=== PATIENT | female | born 1950 | race Caucasian/White ===

== ENCOUNTER 2017-08-28 11:48 | Emergency (ER) | payer OTHER, MEDICAID ==
[~2017-08-28] VITALS: Ht 157.5 cm; Wt 69.0 kg
[2017-08-28] MEDS ORDERED: MORPHINE SULFATE 10 MG/ML CPJ IM ONE (12:00)
[2017-08-28] MEDS ORDERED: TETANUS, DIPHTHERIA, PERTUSSIS VAC/PF 0.5ML (>7YR OLD) IM ONE (12:00)
[2017-08-28 12:14] LABS: BASOPHILS % 0.4 % (0.0-2.0); EOSINOPHILS % 1.8 % (0.0-5.0); HEMATOCRIT. 43.3 % (36.0-48.0); HEMOGLOBIN. 14.8 g/dL (12.0-16.0); LYMPHOCYTES % 47.4 % (20.0-50.0); MEAN CORPUSCULAR HEMOGLOBIN 30.6 pg (28.0-32.0); MEAN CORPUSCULAR VOLUME 89.5 fL (81.0-99.0); MEAN PLATELET VOLUME 9.7 fl (7.4-10.4); MONOCYTES % 6.4 % (2.0-8.0); PLATELET 326 x1000/uL (130-400); RED BLOOD CELL COUNT 4.84 mill/uL (4.2-5.4); RED CELL DISTRIBUTION WIDTH 13.6 % (11.6-14.6)
[2017-08-28] MEDS ORDERED: CEFAZOLIN 1000MG PREMIX 50 ML IV ONE ×2 (12:15)
[2017-08-28 12:20] LABS: PROTHROMBIN TIME 10.5 sec (9.4-11.6)
[2017-08-28 12:23] LABS: CHLORIDE 106 mEq/L (98-107)
[2017-08-28] MEDS ORDERED: ONDANSETRON HCL 4MG/2ML VIAL IV ONE (13:00)
[2017-08-28] MEDS ORDERED: PROPOFOL 200MG/20ML VIAL IV PRN (13:00)
[2017-08-28] MEDS ORDERED: KETAMINE HCL 50 MG/ML 10ML IV ONE (13:00)
[2017-08-28 15:37] VITALS: BP 140/67
== END 2017-08-28 15:56 | disposition short-term general hospital (02) ==
LOC: ER 11:48
DX: S52.692B Other fracture of lower end of left ulna, initial encounter for open fracture type I or II (principal); W19.XXXA Unspecified fall, initial encounter; Y93.89 Activity, other specified; Y92.89 Other specified places as the place of occurrence of the external cause; Y99.8 Other external cause status; I10 Essential (primary) hypertension; E78.00 Pure hypercholesterolemia, unspecified
CPT/HCPCS: 25605; 36415; 73090; 80053; 85025; 85610; 90471; 90715; 93005; 96365; 96372; 96375; 99152; 99285; J0690; J2270; J2405; J3490; J2704

== ENCOUNTER 2018-08-30 12:05 | Inpatient (IN) | payer OTHER, MEDICAID ==
[~2018-08-30] VITALS: Ht 167.6 cm; Wt 70.8 kg
[2018-08-30] MEDS ORDERED: PANTOPRAZOLE SODIUM 40 MG/VIAL IV STA (13:29)
[2018-08-30] MEDS ORDERED: SODIUM CHLORIDE 0.9% 1,000 ML IV ONE (13:29)
[2018-08-30] MEDS ORDERED: ONDANSETRON HCL 4MG/2ML INJ IV STA (13:29)
[2018-08-30 14:26] LABS: BASOPHILS % 0.2 % (0.0-2.0); EOSINOPHILS % 0.3 % (0.0-5.0); HEMOGLOBIN. 13.5 g/dL (12.0-16.0); LYMPHOCYTES % 15.2 % (20.0-50.0); MEAN CORPUSCULAR HEMOGLOBIN 29.6 pg (28.0-32.0); MEAN CORPUSCULAR VOLUME 87.6 fL (81.0-99.0); MEAN PLATELET VOLUME 9.4 fl (7.4-10.4); MONOCYTES % 3.7 % (2.0-8.0); NEUTROPHILS % 80.6 % (40.0-76.0); PLATELET 277 x1000/uL (130-400); RED BLOOD CELL COUNT 4.57 mill/uL (4.2-5.4); RED CELL DISTRIBUTION WIDTH 14.9 % (11.6-14.6)
[2018-08-30 14:31] LABS: CHLORIDE 110 mEq/L (98-107)
[2018-08-30 14:32] LABS: PARTIAL THROMBOPLASTIN TIME 25.6 sec (23.4-31.0); PROTHROMBIN TIME 10.5 sec (9.1-11.1)
[2018-08-30] MEDS ORDERED: NA PHOS,M-B/NA PHOS,DI-BA ENEMA 118ML PR PRN (18:15)
[2018-08-30] MEDS ORDERED: GUAIFENESIN 200MG/10ML SUGAR FREE UDC PO PRN (18:15)
[2018-08-30] MEDS ORDERED: LORAZEPAM 0.5MG TABLET PO PRN (18:15)
[2018-08-30] MEDS ORDERED: HYDROCODONE/ACETAMINOPHEN 5/325MG TABLET PO PRN (18:15)
[2018-08-30] MEDS ORDERED: IPRATROPIUM/ALBUTEROL 0.5-3(2.5)MG/3ML NEB INH PRN (18:15)
[2018-08-30] MEDS ORDERED: DOCUSATE SODIUM 100MG CAPSULE PO PRN (18:15)
[2018-08-30] MEDS ORDERED: MAGNESIUM/ALUMINUM HYDROXIDE/SIMETHICONE 30ML UDC PO PRN (18:15)
[2018-08-30] MEDS ORDERED: CLONIDINE 0.1MG TABLET PO PRN (18:15)
[2018-08-30] MEDS ORDERED: ACETAMINOPHEN 650MG SUPP PR PRN (18:15)
[2018-08-31 05:50] LABS: BASOPHILS % 0.5 % (0.0-2.0); EOSINOPHILS % 2.1 % (0.0-5.0); HEMATOCRIT. 32.4 % (36.0-48.0); HEMOGLOBIN. 11.2 g/dL (12.0-16.0); LYMPHOCYTES % 36.3 % (20.0-50.0); MEAN CORPUSCULAR HEMOGLOBIN 30.4 pg (28.0-32.0); MEAN CORPUSCULAR VOLUME 88.2 fL (81.0-99.0); MEAN PLATELET VOLUME 9.6 fl (7.4-10.4); MONOCYTES % 4.9 % (2.0-8.0); NEUTROPHILS % 56.2 % (40.0-76.0); PLATELET 248 x1000/uL (130-400); RED BLOOD CELL COUNT 3.68 mill/uL (4.2-5.4)
[2018-08-31 05:57] LABS: CHLORIDE 115 mEq/L (98-107)
[2018-08-31 06:08] LABS: LDL CHOLESTEROL 57 mg/dL (5-100)
[2018-08-31 06:09] LABS: HDL CHOLESTEROL 34 mg/dL (40-59); T4 FREE 1.04 ng/dL (0.76-1.46)
[2018-08-31 08:00] VITALS: BP 118/61
[2018-08-31] MEDS: DEXT 5%/0.45% NACL 1000ML 1,000 ML IV SCH ×2 (08:00→15:51)
[2018-08-31 09:00] VITALS: BP 132/52
[2018-08-31] MEDS: PANTOPRAZOLE SODIUM 40 MG/VIAL IV SCH (09:00)
[2018-08-31] MEDS ORDERED: LEVOFLOXACIN 500MG PREMIX 100 ML IV SCH (10:00)
[2018-08-31 12:00] VITALS: BP 132/52
[2018-08-31 16:00] VITALS: BP 143/55
[2018-08-31] MEDS: DIPHENHYDRAMINE 50MG/ML VIAL IV PRN (16:49)
[2018-08-31 20:00] VITALS: BP 121/84
[2018-08-31] MEDS: VANCOMYCIN 1500MG in DEXTROSE 5% WATER 250ML IV SCH ×2 (20:00→22:56)
[2018-09-01] VITALS (14 sets, daily range): BP systolic 111–140; BP diastolic 45–84
[2018-09-01] MEDS: VANCOMYCIN 1500MG in DEXTROSE 5% WATER 250ML IV SCH (07:07)
[2018-09-01 07:16] LABS: CLARITY URINE CLOUDY (CLEAR); COLOR URINE YELLOW (YELLOW); KETONES URINE TRACE (NEGATIVE); LEUKOCYTE ESTERASE URINE 2+ (NEGATIVE); NITRITE URINE NEGATIVE (NEGATIVE); OCCULT BLOOD URINE 1+ (NEGATIVE); PROTEIN URINE NEGATIVE (NEGATIVE); SPECIFIC GRAVITY URINE 1.022 (1.005-1.030); UROBILINOGEN URINE 0.2 E.U./dL (0.2-1.0)
[2018-09-01 07:39] LABS: *AMPHETAMINES SCREEN URINE NEGATIVE (NEGATIVE); *BARBITURATES SCREEN URINE NEGATIVE (NEGATIVE); *BENZODIAZEPINES SCREEN URINE NEGATIVE (NEGATIVE); *COCAINE SCREEN URINE NEGATIVE (NEGATIVE); METHADONE URINE SCREEN NEGATIVE (NEGATIVE); OPIATES URINE SCREEN NEGATIVE (NEGATIVE)
[2018-09-01 07:40] LABS: CANNABINOID URINE SCREEN NEGATIVE (NEGATIVE); PHENCYCLIDINE URINE SCREEN NEGATIVE (NEGATIVE)
[2018-09-01] MEDS: PANTOPRAZOLE SODIUM 40 MG/VIAL IV SCH (08:50)
[2018-09-01] MEDS ORDERED: LEVOFLOXACIN 500MG TABLET PO SCH ×2 (11:00)
[2018-09-01] MEDS: DEXT 5%/0.45% NACL 1000ML 1,000 ML IV SCH ×2 (11:35→20:59)
[2018-09-01 11:58] LABS: HEMATOCRIT 31.7 % (36.0-48.0); HEMOGLOBIN 11.1 g/dL (12.0-16.0); MEAN CORPUSCULAR VOLUME 88.9 fL (81.0-99.0); PLATELET 253 x1000/uL (130-400); RED BLOOD CELL COUNT 3.56 mill/uL (4.2-5.4)
[2018-09-01 12:01] LABS: CHLORIDE 112 mEq/L (98-107)
[2018-09-01] MEDS ORDERED: BISACODYL 5MG TABLET PO NR ×2 (15:00→19:00)
[2018-09-01] MEDS ORDERED: METOCLOPRAMIDE 10MG/10 ML UDC PO NR ×2 (15:00→19:00)
[2018-09-01] MEDS ORDERED: SORBITOL 70% SOLN 30ML PO NR ×2 (16:00→20:00)
[2018-09-01] MEDS: ONDANSETRON HCL 4MG/2ML INJ IV PRN (17:37)
[2018-09-01] MEDS ORDERED: CEPHALEXIN 250MG CAPSULE PO SCH (18:00)
[2018-09-01 20:16] LABS: HEMATOCRIT 31.9 % (36.0-48.0); HEMOGLOBIN 10.8 g/dL (12.0-16.0)
[2018-09-01] MEDS ORDERED: POTASSIUM CHLORIDE 20MEQ/PACKET PO NR (20:30)
[2018-09-02] VITALS (63 sets, daily range): BP systolic 86–155; BP diastolic 46–103
[2018-09-02] MEDS: CEPHALEXIN 250MG CAPSULE PO SCH ×3 (00:54→11:47)
[2018-09-02 01:00] LABS: HEMATOCRIT 28.8 % (36.0-48.0)
[2018-09-02] MEDS ORDERED: SORBITOL 70% SOLN 30ML PO NR (04:00)
[2018-09-02] MEDS ORDERED: METOCLOPRAMIDE 10MG/10 ML UDC PO NR (04:00)
[2018-09-02 05:51] LABS: BASOPHILS % 0.3 % (0.0-2.0); EOSINOPHILS % 2.3 % (0.0-5.0); HEMATOCRIT. 26.8 % (36.0-48.0); HEMOGLOBIN. 9.3 g/dL (12.0-16.0); LYMPHOCYTES % 36.9 % (20.0-50.0); MEAN CORPUSCULAR HEMOGLOBIN 30.9 pg (28.0-32.0); MEAN PLATELET VOLUME 9.5 fl (7.4-10.4); MONOCYTES % 6.2 % (2.0-8.0); NEUTROPHILS % 54.3 % (40.0-76.0); PLATELET 232 x1000/uL (130-400); RED BLOOD CELL COUNT 3.01 mill/uL (4.2-5.4)
[2018-09-02 06:02] LABS: CHLORIDE 116 mEq/L (98-107)
[2018-09-02] MEDS: DEXT 5%/0.45% NACL 1000ML 1,000 ML IV SCH ×3 (06:40→23:44)
[2018-09-02] MEDS: PANTOPRAZOLE SODIUM 40 MG/VIAL IV SCH ×2 (09:12→20:27)
[2018-09-02] MEDS ORDERED: POTASSIUM CHLORIDE 20MEQ/PACKET PO NR (16:00)
[2018-09-02] MEDS ORDERED: METOCLOPRAMIDE HCL 10MG/2ML VIAL IV NR (16:00)
[2018-09-02] MEDS: PIPERACILLIN/TAZ 3.375G PREMIX 50 ML IV SCH ×2 (16:20→23:44)
[2018-09-02 16:34] LABS: HEMATOCRIT 28.3 % (36.0-48.0); HEMOGLOBIN 9.8 g/dL (12.0-16.0)
[2018-09-02] MEDS ORDERED: DIPHENHYDRAMINE 50MG/ML VIAL ONE (17:32)
[2018-09-02] MEDS ORDERED: MIDAZOLAM HCL 5 MG/5 ML VIAL ONE (17:32)
[2018-09-02] MEDS ORDERED: FENTANYL CITRATE/PF 50MCG/ML 2ML VIAL ONE (17:32)
[2018-09-02] MEDS ORDERED: SIMETHICONE 40 MG/0.6 ML 30ML ONE (17:32)
[2018-09-02] MEDS ORDERED: MIDAZOLAM HCL 5 MG/5 ML VIAL IV PRN (17:40)
[2018-09-02] MEDS ORDERED: FENTANYL CITRATE/PF 50MCG/ML 2ML VIAL IV PRN (17:41)
[2018-09-02] MEDS: ONDANSETRON HCL 4MG/2ML INJ IV PRN (19:23)
[2018-09-02] MEDS: DIPHENHYDRAMINE 50MG/ML VIAL IV PRN (19:24)
[2018-09-02 23:50] LABS: HEMATOCRIT 27.2 % (36.0-48.0); HEMOGLOBIN 9.3 g/dL (12.0-16.0)
[2018-09-03] VITALS (76 sets, daily range): BP systolic 64–161; BP diastolic 35–76
[2018-09-03] MEDS: DEXT 5%/0.45% NACL 1000ML 1,000 ML IV SCH ×3 (05:37→20:30)
[2018-09-03] MEDS: PIPERACILLIN/TAZ 3.375G PREMIX 50 ML IV SCH ×4 (05:37→23:37)
[2018-09-03 07:46] LABS: CHLORIDE 113 mEq/L (98-107)
[2018-09-03 07:49] LABS: BASOPHILS % 0.2 % (0.0-2.0); EOSINOPHILS % 1.4 % (0.0-5.0); HEMOGLOBIN. 8.6 g/dL (12.0-16.0); LYMPHOCYTES % 25.1 % (20.0-50.0); MEAN CORPUSCULAR HEMOGLOBIN 30.7 pg (28.0-32.0); MEAN CORPUSCULAR VOLUME 88.7 fL (81.0-99.0); MONOCYTES % 4.2 % (2.0-8.0); NEUTROPHILS % 69.1 % (40.0-76.0); PLATELET 227 x1000/uL (130-400); RED BLOOD CELL COUNT 2.82 mill/uL (4.2-5.4); RED CELL DISTRIBUTION WIDTH 15.1 % (11.6-14.6)
[2018-09-03] MEDS: PANTOPRAZOLE SODIUM 40 MG/VIAL IV SCH ×2 (09:51→22:14)
[2018-09-03] MEDS ORDERED: POTASSIUM CHLORIDE INJ 40 MEQ in DEXT 5% WATER 250 ML IV NR (12:00)
[2018-09-03] MEDS ORDERED: LORAZEPAM 0.5MG TABLET PO PRN (18:15)
[2018-09-03 19:32] LABS: HEMOGLOBIN 9.7 g/dL (12.0-16.0)
[2018-09-03] MEDS ORDERED: IOHEXOL-300 100 ML BOTTLE ONE (21:42)
[2018-09-04] VITALS (28 sets, daily range): BP systolic 90–156; BP diastolic 41–96
[2018-09-04 05:31] LABS: HEMATOCRIT 26.4 % (36.0-48.0); HEMOGLOBIN 9.1 g/dL (12.0-16.0); MEAN CORPUSCULAR HEMOGLOBIN 30.7 pg (28.0-32.0); MEAN CORPUSCULAR VOLUME 88.6 fL (81.0-99.0); PLATELET 257 x1000/uL (130-400); RED BLOOD CELL COUNT 2.98 mill/uL (4.2-5.4); RED CELL DISTRIBUTION WIDTH 15.2 % (11.6-14.6)
[2018-09-04 05:37] LABS: CHLORIDE 109 mEq/L (98-107)
[2018-09-04] MEDS: PIPERACILLIN/TAZ 3.375G PREMIX 50 ML IV SCH ×3 (05:58→18:13)
[2018-09-04] MEDS: DEXT 5%/0.45% NACL 1000ML 1,000 ML IV SCH ×3 (05:59→20:19)
[2018-09-04] MEDS: PANTOPRAZOLE SODIUM 40 MG/VIAL IV SCH ×2 (09:19→21:30)
[2018-09-04] MEDS ORDERED: POTASSIUM CHLORIDE INJ 40 MEQ in DEXT 5% WATER 250 ML IV NR (09:30)
[2018-09-04] MEDS ORDERED: LORAZEPAM 0.5MG TABLET PO PRN (14:15)
[2018-09-05] VITALS (42 sets, daily range): BP systolic 93–146; BP diastolic 37–75
[2018-09-05] MEDS: PIPERACILLIN/TAZ 3.375G PREMIX 50 ML IV SCH ×4 (00:41→18:40)
[2018-09-05 05:27] LABS: CHLORIDE 108 mEq/L (98-107)
[2018-09-05 05:28] LABS: HEMOGLOBIN 9.2 g/dL (12.0-16.0); MEAN CORPUSCULAR HEMOGLOBIN 31.5 pg (28.0-32.0); MEAN CORPUSCULAR VOLUME 88.9 fL (81.0-99.0); PLATELET 276 x1000/uL (130-400); RED BLOOD CELL COUNT 2.93 mill/uL (4.2-5.4); RED CELL DISTRIBUTION WIDTH 15.1 % (11.6-14.6)
[2018-09-05] MEDS: DEXT 5%/0.45% NACL 1000ML 1,000 ML IV SCH (06:39)
[2018-09-05] MEDS: PANTOPRAZOLE SODIUM 40 MG/VIAL IV SCH ×2 (09:00→21:38)
[2018-09-05] MEDS ORDERED: BUPIVACAINE HCL 0.5% (5MG/ML) 50ML ONE ×2 (10:12→11:50)
[2018-09-05] MEDS ORDERED: FENTANYL CITRATE/PF 50MCG/ML 5ML VIAL ONE (11:16)
[2018-09-05] MEDS ORDERED: PROPOFOL 200MG/20ML VIAL IV ONE (11:16)
[2018-09-05] MEDS ORDERED: ROCURONIUM BROMIDE 10MG/ML VIAL 5ML IV ONE (11:16)
[2018-09-05] MEDS ORDERED: MIDAZOLAM HCL 2 MG/2 ML VIAL ONE (11:16)
[2018-09-05] MEDS ORDERED: GLYCOPYRROLATE 0.2 MG/ML 2ML VIAL ONE (11:17)
[2018-09-05] MEDS ORDERED: METRONIDAZOLE 500 MG PREMIX 100 ML IV ONE (11:39)
[2018-09-05] MEDS ORDERED: BUPIVACAINE HCL 0.5% 175 ML in ON-Q PM013 DRUG DELIV DEVICE 1 EA IR SCH (12:00)
[2018-09-05] MEDS ORDERED: SUCCINYLCHOLINE CHLORIDE 200MG/10ML IV ONE (12:03)
[2018-09-05] MEDS ORDERED: NIFEDIPINE 10MG CAPSULE ONE (12:03)
[2018-09-05] MEDS ORDERED: ONDANSETRON HCL 4MG/2ML INJ ONE (12:03)
[2018-09-05] MEDS ORDERED: METOCLOPRAMIDE HCL 10MG/2ML VIAL ONE (12:03)
[2018-09-05] MEDS ORDERED: MEPERIDINE HCL/PF 25MG/ML CPJ IV PRN (12:15)
[2018-09-05] MEDS ORDERED: HYDROMORPHONE HCL/PF 2MG/ML CPJ IV PRN (12:15)
[2018-09-05] MEDS ORDERED: ONDANSETRON HCL 4MG/2ML INJ IV PRN ×2 (12:15→12:30)
[2018-09-05] MEDS ORDERED: FENTANYL CITRATE/PF 50MCG/ML 2ML VIAL IV PRN (12:15)
[2018-09-05] MEDS ORDERED: KETOROLAC 30MG/ML VIAL ONE (12:19)
[2018-09-05] MEDS ORDERED: NEOSTIGMINE METHYLSULFATE 1MG/ML 10 ML VIAL ONE (12:20)
[2018-09-05] MEDS ORDERED: SKIN ADHESIVE 0.7 GM EA TOP ONE (12:22)
[2018-09-05] MEDS: ENOXAPARIN 40MG/0.4ML SYR SUBCUT SCH (12:45)
[2018-09-05] MEDS: CEFAZOLIN 1000MG PREMIX 50 ML IV SCH ×2 (15:04→21:39)
[2018-09-05] MEDS: BUPIVACAINE HCL 0.5% 175 ML in ON-Q PUMP (PM013=P270X2) IR SCH (15:07)
[2018-09-05] MEDS: DEXT 5%/0.45% NACL KCL 20MEQ/L 1,000 ML IV SCH (15:07)
[2018-09-05] MEDS: MORPHINE SULFATE 4 MG/ML CPJ (NOT FOR IM USE) IV PRN ×2 (15:13→18:39)
[2018-09-05] MEDS: METRONIDAZOLE 500 MG PREMIX 100 ML IV SCH ×2 (15:21→22:53)
[2018-09-06] VITALS (35 sets, daily range): BP systolic 73–171; BP diastolic 23–78
[2018-09-06] MEDS: PIPERACILLIN/TAZ 3.375G PREMIX 50 ML IV SCH ×4 (01:01→21:28)
[2018-09-06] MEDS: DEXT 5%/0.45% NACL KCL 20MEQ/L 1,000 ML IV SCH ×3 (01:02→19:30)
[2018-09-06] MEDS: DIPHENHYDRAMINE 50MG/ML VIAL IV PRN (02:44)
[2018-09-06] MEDS: CEFAZOLIN 1000MG PREMIX 50 ML IV SCH (05:51)
[2018-09-06] MEDS: METRONIDAZOLE 500 MG PREMIX 100 ML IV SCH (05:51)
[2018-09-06] MEDS ORDERED: POTASSIUM CHLORIDE INJ 40 MEQ in DEXT 5% WATER 250 ML IV ONE (08:00)
[2018-09-06 09:02] LABS: HEMOGLOBIN. 7.7 g/dL (12.0-16.0); MEAN CORPUSCULAR HEMOGLOBIN 30.7 pg (28.0-32.0); MEAN CORPUSCULAR VOLUME 88.2 fL (81.0-99.0); PLATELET 271 x1000/uL (130-400); RED BLOOD CELL COUNT 2.49 mill/uL (4.2-5.4); RED CELL DISTRIBUTION WIDTH 15.3 % (11.6-14.6)
[2018-09-06 09:11] LABS: CHLORIDE 108 mEq/L (98-107)
[2018-09-06 09:17] LABS: PHOSPHORUS 1.8 mg/dL (2.5-4.9)
[2018-09-06] MEDS: PANTOPRAZOLE SODIUM 40 MG/VIAL IV SCH (10:14)
[2018-09-06] MEDS: MORPHINE SULFATE 4 MG/ML CPJ (NOT FOR IM USE) IV PRN ×2 (10:14→18:14)
[2018-09-06 11:18] LABS: PLATELET ESTIMATE NORMAL
[2018-09-06] MEDS: ENOXAPARIN 40MG/0.4ML SYR SUBCUT SCH (12:00)
[2018-09-06] MEDS: POTASSIUM-SODIUM PHOSPHATE POWDER PACKET PO SCH ×3 (13:00→18:09)
[2018-09-06] MEDS: BUPIVACAINE HCL 0.5% 175 ML in ON-Q PUMP (PM013=P270X2) IR SCH (14:05)
[2018-09-06] MEDS ORDERED: POTASSIUM PHOS,M-BASIC-D-BASIC 30 MMOL in DEXT 5% WATER 500 ML IV SCH (21:30)
[2018-09-07] VITALS: BP 113/54
[2018-09-07 04:00] VITALS: BP 137/71
[2018-09-07] MEDS: PIPERACILLIN/TAZ 3.375G PREMIX 50 ML IV SCH ×4 (06:15→22:49)
[2018-09-07 07:16] LABS: BASOPHILS % 0.2 % (0.0-2.0); EOSINOPHILS % 2.1 % (0.0-5.0); HEMATOCRIT. 25.7 % (36.0-48.0); HEMOGLOBIN. 8.8 g/dL (12.0-16.0); LYMPHOCYTES % 9.8 % (20.0-50.0); MEAN CORPUSCULAR HEMOGLOBIN 29.9 pg (28.0-32.0); MEAN CORPUSCULAR VOLUME 87.5 fL (81.0-99.0); MEAN PLATELET VOLUME 8.6 fl (7.4-10.4); MONOCYTES % 4.7 % (2.0-8.0); NEUTROPHILS % 83.2 % (40.0-76.0); PLATELET 280 x1000/uL (130-400); RED BLOOD CELL COUNT 2.94 mill/uL (4.2-5.4); RED CELL DISTRIBUTION WIDTH 15.3 % (11.6-14.6)
[2018-09-07 08:00] VITALS: BP 136/64
[2018-09-07 08:02] LABS: CHLORIDE 107 mEq/L (98-107)
[2018-09-07 08:15] LABS: PHOSPHORUS 3.1 mg/dL (2.5-4.9)
[2018-09-07] MEDS: PANTOPRAZOLE SODIUM 40 MG/VIAL IV SCH ×2 (10:24→22:48)
[2018-09-07 12:00] VITALS: BP 115/61
[2018-09-07] MEDS: ENOXAPARIN 40MG/0.4ML SYR SUBCUT SCH (13:40)
[2018-09-07] MEDS: DEXT 5%/0.45% NACL KCL 20MEQ/L 1,000 ML IV SCH ×2 (15:47→23:03)
[2018-09-07] MEDS: HYDROCODONE/ACETAMINOPHEN 5/325MG TABLET PO PRN (15:48)
[2018-09-07 16:00] VITALS: BP 128/64
[2018-09-07 20:00] VITALS: BP 137/64
[2018-09-08] VITALS: BP 124/57
[2018-09-08] MEDS: PIPERACILLIN/TAZ 3.375G PREMIX 50 ML IV SCH ×4 (03:27→20:44)
[2018-09-08] MEDS: DEXT 5%/0.45% NACL KCL 20MEQ/L 1,000 ML IV SCH ×2 (03:27→11:27)
[2018-09-08 04:00] VITALS: BP 137/63
[2018-09-08 08:00] VITALS: BP_SYST 134; BP_SYST 135; BP_DIAS 71
[2018-09-08] MEDS: PANTOPRAZOLE SODIUM 40 MG/VIAL IV SCH ×2 (08:21→20:44)
[2018-09-08] MEDS: ENOXAPARIN 40MG/0.4ML SYR SUBCUT SCH (11:27)
[2018-09-08 12:00] VITALS: BP 141/73
[2018-09-08] MEDS: HYDROCODONE/ACETAMINOPHEN 5/325MG TABLET PO PRN ×2 (12:35→23:02)
[2018-09-08 16:00] VITALS: BP 121/53
[2018-09-08 17:18] LABS: CHLORIDE 107 mEq/L (98-107)
[2018-09-08 17:21] LABS: BASOPHILS % 0.4 % (0.0-2.0); EOSINOPHILS % 5.3 % (0.0-5.0); HEMATOCRIT. 24.3 % (36.0-48.0); HEMOGLOBIN. 8.6 g/dL (12.0-16.0); LYMPHOCYTES % 18.5 % (20.0-50.0); MEAN CORPUSCULAR HEMOGLOBIN 30.8 pg (28.0-32.0); MEAN CORPUSCULAR VOLUME 87.6 fL (81.0-99.0); MEAN PLATELET VOLUME 8.7 fl (7.4-10.4); MONOCYTES % 4.6 % (2.0-8.0); NEUTROPHILS % 71.2 % (40.0-76.0); PLATELET 314 x1000/uL (130-400); RED BLOOD CELL COUNT 2.78 mill/uL (4.2-5.4); RED CELL DISTRIBUTION WIDTH 15.1 % (11.6-14.6)
[2018-09-08 20:00] VITALS: BP 131/51
[2018-09-09] VITALS: BP 135/60
[2018-09-09] MEDS: DEXT 5%/0.45% NACL KCL 20MEQ/L 1,000 ML IV SCH (03:59)
[2018-09-09 04:00] VITALS: BP 113/51
[2018-09-09] MEDS: PIPERACILLIN/TAZ 3.375G PREMIX 50 ML IV SCH ×4 (04:05→21:19)
[2018-09-09 06:07] LABS: HEMATOCRIT 24.6 % (36.0-48.0); HEMOGLOBIN 8.4 g/dL (12.0-16.0); MEAN CORPUSCULAR HEMOGLOBIN 29.8 pg (28.0-32.0); MEAN CORPUSCULAR VOLUME 87.4 fL (81.0-99.0); PLATELET 341 x1000/uL (130-400); RED BLOOD CELL COUNT 2.81 mill/uL (4.2-5.4); RED CELL DISTRIBUTION WIDTH 15.2 % (11.6-14.6)
[2018-09-09 06:42] LABS: CHLORIDE 107 mEq/L (98-107)
[2018-09-09 08:00] VITALS: BP 125/61
[2018-09-09] MEDS: PANTOPRAZOLE SODIUM 40 MG/VIAL IV SCH ×2 (08:36→21:19)
[2018-09-09] MEDS ORDERED: POTASSIUM CHLORIDE 20MEQ TABLET SR PO NR (10:30)
[2018-09-09] MEDS: ENOXAPARIN 40MG/0.4ML SYR SUBCUT SCH (11:11)
[2018-09-09 11:35] VITALS: BP 159/73
[2018-09-09] MEDS: HYDROCODONE/ACETAMINOPHEN 5/325MG TABLET PO PRN (13:55)
[2018-09-09 16:02] VITALS: BP 123/55
[2018-09-09 20:00] VITALS: BP 140/70
[2018-09-10] VITALS: BP 138/61
[2018-09-10] MEDS: ACETAMINOPHEN 325MG TABLET PO PRN ×2 (00:44→13:12)
[2018-09-10 04:00] VITALS: BP 130/62
[2018-09-10 07:30] LABS: HEMATOCRIT 26.5 % (36.0-48.0); HEMOGLOBIN 8.8 g/dL (12.0-16.0); MEAN CORPUSCULAR HEMOGLOBIN 29.1 pg (28.0-32.0); MEAN CORPUSCULAR VOLUME 87.5 fL (81.0-99.0); PLATELET 395 x1000/uL (130-400); RED BLOOD CELL COUNT 3.03 mill/uL (4.2-5.4); RED CELL DISTRIBUTION WIDTH 15.1 % (11.6-14.6)
[2018-09-10 08:00] VITALS: BP 123/60
[2018-09-10] MEDS: PANTOPRAZOLE SODIUM 40 MG/VIAL IV SCH (08:46)
[2018-09-10 08:55] LABS: CHLORIDE 110 mEq/L (98-107)
[2018-09-10] MEDS ORDERED: POTASSIUM CHLORIDE 20MEQ TABLET SR PO SCH (09:30)
[2018-09-10] MEDS: ENOXAPARIN 40MG/0.4ML SYR SUBCUT SCH (11:07)
[2018-09-10 12:00] VITALS: BP 113/53
== END 2018-09-10 14:30 | DRG 329 ==
LOC: ER 12:05 → 6EST 15:09 → EDBEDREQTM 15:15 → EDBEDREQ 15:15 → EDBEDREQSVC 15:15 → ENRESERV 08-31 07:21 → 6EST 08-31 09:04 → MICUSO 09-01 18:48 → 6EST 09-06 22:20
PROVIDERS: ADMIT Internal Medicine; ATTEND Internal Medicine
PROC: 05HY33Z Insertion of Infusion Device into Upper Vein, Percutaneous Approach (ICD-10-PCS; 2018-09-02)
PROC: B54MZZA Ultrasonography of Right Upper Extremity Veins, Guidance (ICD-10-PCS; 2018-09-02)
PROC: 0DBK8ZX Excision of Ascending Colon, Via Natural or Artificial Opening Endoscopic, Diagnostic (ICD-10-PCS; 2018-09-02)
PROC: 3E0H8GC Introduction of Other Therapeutic Substance into Lower GI, Via Natural or Artificial Opening Endoscopic (ICD-10-PCS; 2018-09-02)
PROC: 0DTF0ZZ Resection of Right Large Intestine, Open Approach (ICD-10-PCS; principal; 2018-09-05)
PROC: 07BB0ZZ Excision of Mesenteric Lymphatic, Open Approach (ICD-10-PCS; 2018-09-05)
PROC: 30233N1 Transfusion of Nonautologous Red Blood Cells into Peripheral Vein, Percutaneous Approach (ICD-10-PCS; 2018-09-06)
DX: C18.2 Malignant neoplasm of ascending colon (principal); K57.31 Diverticulosis of large intestine without perforation or abscess with bleeding; N39.0 Urinary tract infection, site not specified; I10 Essential (primary) hypertension; E78.5 Hyperlipidemia, unspecified; E86.0 Dehydration; E66.9 Obesity, unspecified; I80.8 Phlebitis and thrombophlebitis of other sites; E87.6 Hypokalemia; E83.39 Other disorders of phosphorus metabolism; E78.00 Pure hypercholesterolemia, unspecified; R73.9 Hyperglycemia, unspecified; K63.9 Disease of intestine, unspecified; B95.1 Streptococcus, group B, as the cause of diseases classified elsewhere; D64.9 Anemia, unspecified; N32.89 Other specified disorders of bladder; G89.18 Other acute postprocedural pain; Z79.82 Long term (current) use of aspirin; Z68.25 Body mass index [BMI] 25.0-25.9, adult; Z90.49 Acquired absence of other specified parts of digestive tract; Z87.81 Personal history of (healed) traumatic fracture
CPT/HCPCS: 36415; 36569; 71045; 74176; 74177; 76937; 78278; 80048; 80061; 80305; 82378; 83036; 83735; 84100; 84132; 84439; 84443; 84484; 85007; 85014; 85018; 85027; 86850; 86900; 86920; 87077; 88305; 88309; 93005; 93306; 93970; 96365; 96366; 96375; 97116; 97162; 97164; 97530; 99152; 99153; 99285; A6261; A9560; C1725; C1893; C9113; J0330; J0690; J1200; J1650; J1885; J1956; J2250; J2270; J2405; J2543; J2704; J2710; J2765; J3010; J3370; J3480; J3490; J7030; J7040; J7060; J8597; P9016; Q9967; G0500